=== PATIENT | female | born 2000 | race African-American/Black ===

== ENCOUNTER 2019-05-15 11:28 | Inpatient (IN) | payer OTHER ==
[~2019-05-15] VITALS: Ht 154.9 cm; Wt 46.3 kg
--- NOTE | ~2019-05-15 | HC ---
[facility] [place] [address] CONSULTATION Name: CANDIDO DE LA ROSA Room #: 202-P ADM IN M.R.#: [id number] Admission: 05/15/19 Attend Phys: Shawn Jennings MD Discharge: Date of : 99 Report #: [id number] THIS REPORT FOR: //name// CC: Shawn FernándezLanders DATE OF SERVICE: 05/15/2019 HISTORY OF PRESENT ILLNESS: This is a 19-year-old female patient, who was evaluated by me for the possibility of seizure. The patient was discussed with the Emergency Room physician and the nurses looking after them tonight. She said she had a first seizure about 7 years ago. She never saw any physician. The seizure was somewhat non-impressive jerking. Then, she started having episode where she said she freezes. She is fully conscious during those episodes. This lasted about 10 minutes. It is brought on by stress and then she becomes better. At this time, she is admitted because she said her back hurts and then her had dropped and then she started shaking. There is a question whether she was confused after that. There is no bladder or bowel incontinence. She had no tongue biting associated with this. She started a new job about 2 weeks ago. She is stressed out because of that. She is not getting enough sleep. She works as a faviola at night job. REVIEW OF SYSTEMS: She indicates she is not a diabetic or hypertensive and presently, she does not have any eye, ENT, cardiac, respiratory, GI, , musculoskeletal, constitutional, dermatological, hematological, throat, or allergic symptom associated with present symptomatology. PAST MEDICAL HISTORY: Positive for episode, which is at least 7 years' duration. FAMILY HISTORY: Unremarkable. SOCIAL HISTORY: She indicates she used to smoke marijuana. She said she stopped doing it. This was done about 1-2 weeks ago. She does not smoke cigarettes. I did not see a urine tox screen on her. PHYSICAL EXAMINATION: Her examination indicates she is alert, responsive, and able to follow simple and complex command. Her speech, concentration, fund of knowledge and memory is at her baseline. Cranial nerve examinations appear unremarkable. Neuromuscular examination is symmetrical. There is no meningeal sign no cerebellar sign. I could not look at the patient's fundus. Cardiac examination is unremarkable. No respiratory difficulty or rhonchi was noted. Blood pressure is 105/70, [facility] [address] [place] [address] CONSULTATION Name: CANDIDO DE LA ROSA Room #: 202-P [facility] IN M.R.#: [id number] Admission: 05/15/19 Attend Phys: Shawn Jennings MD Discharge: Date of : 99 Report #: [id number] respirations 16, pulse is 67, and temperature is 98.3. LABORATORY DATA: White count is normal. Her potassium is trace low at 3.4, but calcium is normal. She did have a CT scan in the Emergency Room, which does not show any abnormality. 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 However, we will exclude the possibility of any seizures in this patient. 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 I recommended an MRI of the brain and EEG. We will check a test. I did discuss with her that a negative test does not fully exclude the . I discussed her options and potential complication of the workup we doing on her. She understands that. She wants to proceed with the workup. We will do an MRI and an EEG. If they are negative, I will suggest a psychiatric consult in this patient. Dr. 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 She understands that. Dr. De Souza will review the patient's workup tomorrow and follow up with you tomorrow for further recommendation. By: [id number] Kevin Coombs MD /nt
--- NOTE | ~2019-05-15 | EEG ---
[facility] [place] [address] ELECTROENCEPHALOGRAM Name: CANDIDO DE LA RSOA Room #: 202-P ADM IN M.R.#: [id number] Admission: 05/15/19 Attend Phys: Shawn Jennings MD Discharge: Date of : 99 Report #: [id number] THIS REPORT FOR: //name// CC: Shawn Salcedo [facility] DATE OF SERVICE: 05/16/2019 This patient is being evaluated for the possibility of seizure. EEG was done by placing the electrodes by standard 10-20 system of electrode placement. Both referential and sequential montages were used for recording. Background activity in this patient's EEG is about 11 Hz and 40 microvolt. The patient went to sleep and that is associated with bilaterally symmetrical sleep spindle and vertex sharp waves. Throughout the record, no active epileptiform activity was noticed. IMPRESSION: This patient's EEG is within normal limit. Thank you very much for this referral. By: [id number] Kevin Coombs MD /nt
[2019-05-15 11:29] VITALS: BP 117/79
[2019-05-15 12:09] LABS: ABSOLUTE NEUTROPHILS 3.2 thou/uL (1.4-8.2); BASOPHILS 0.6 % (0.0-2.0); EOSINOPHILS 6.1 % (0.0-3.0); HEMOGLOBIN 12.5 gm/dL (12.0-15.0); LYMPHOCYTES 40.1 % (24.0-44.0); MCH 30.1 pg (26.0-34.0); MCHC 32.9 g/dL (28.0-37.0); MCV 91.3 fL (80.0-100.0); PLATELET COUNT 218 thou/uL (150-400); POLYS 45.2 % (36.0-66.0); RBC 4.16 mil/uL (4.20-5.00); RDW 13.1 % (10.5-14.5)
[2019-05-15 12:14] LABS: CREATININE 0.8 mg/dL (0.6-1.0); POTASSIUM 3.4 mmol/L (3.5-5.1)
[2019-05-15 12:20] LABS: ALBUMIN 4.1 g/dL (3.4-5.0); TOTAL BILIRUBIN 0.4 mg/dL (<0.1-1.0); TOTAL PROTEIN 7.8 g/dL (6.4-8.2)
[2019-05-15 12:42] LABS: URINE BILIRUBIN NEGATIVE (Negative); URINE BLOOD NEGATIVE (Negative); URINE CLARITY CLEAR; URINE COLOR YELLOW; URINE GLUCOSE-RANDOM* NEGATIVE (Negative); URINE KETONES 1+ (Negative); URINE LEUKOCYTES-REFLEX NEGATIVE (Negative); URINE NITRITE-REFLEX NEGATIVE (Negative); URINE PROTEIN (DIPSTICK) NEGATIVE (Negative); URINE UROBILINOGEN 0.2 E.U./dl (0.2-1.0)
[2019-05-15 16:11] VITALS: BP 108/60
[2019-05-15 16:33] VITALS: BP 111/64
[2019-05-15 17:10] VITALS: BP 105/70
--- NOTE | 2019-05-15 19:20 | NUR ---
NEW ADMIT FOR SEIZURE. ALERT X4, VS STABLE, DENIES PAIN, DENIES SOB, LAST BM 05/14/19. STAND BY FOR PRECAUTIONS, PT ABLE TO VOICE WHAT HAPPENED. 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 NEUROLOGY ROUNDED BEDSIDE AND DISCUSSED EEG AND MRI FOR TOMORROW. NSR ON TELE. ADMISSION ASSESMENT AND HISTORY COMPLETED. CALL LIGHT IN REACH. BOYFREIND BEDSIDE. J
[2019-05-15 19:27] LABS: TSH 1.271 uIU/mL (0.358-3.740)
[2019-05-15 20:45] VITALS: BP 108/64
[2019-05-16 00:48] VITALS: BP 106/65
[2019-05-16 04:45] VITALS: BP 98/65
--- NOTE | 2019-05-16 05:13 | NUR ---
ASSUMED PT CARE AT 1900, PT IS ALERT AND ORIENTEDX4, BOYFRIEND AT BEDSIDE,PT IS SINUS RHYTHM ON THE MONITOR, DENIES CHEST PAIN, HEADACHE, LIGHTHEADEDBESS OR SOB, ASSESSMENTS CHARTED, VS STABLE, SEIZURE PRECAUTIONS IN PLACE, EEG AND MRI IN THE AM, CONSULT CALLED FOR NEUROLOGY ORDERED, WILL CONTINUE TO MONITOR
[2019-05-16 07:45] VITALS: BP 108/67
--- NOTE | 2019-05-16 10:31 | NUR ---
Pt heading down for MRI this am. Spinning And Winding Supervisor visited with her breifly at bedside. She is a&ox4. Boyfriend supportive and at bedside. She indicates that she is uninsured and that her mother no longer carries her on her ins plan. She was working and indep prior to admission. She does not have health insurance options through her employer. Will initiate [employer] referral [place] /or michelle application. She is up with supervision and hoping to dc home later today. Will follow along for medication assistance. [facility] clinic info provided in her dc instructions.
[2019-05-16 10:36] VITALS: BP 108/67
--- NOTE | 2019-05-16 11:33 | NUR ---
FAXED FACE SHEET TO [facility] AT [facility] TO HELP WITH MEDICAID APPLICATION RECEIVED CONFIRMATION.
[2019-05-16 12:32] VITALS: BP 116/77
--- NOTE | 2019-05-16 13:00 | NUR ---
ASSUMED CARE 0700, ALERT X4, SLEPT WELL, CALM, VS STABLE, DENIES PAIN, DENIES CHEST PAIN, MRI AND EEG COMPLETED. NSR ON TELE, UP AB TALAT IN ROOM. IV AND TELE REMOVED. DC HOME WITH SELF CARE.
== END 2019-05-16 13:24 | disposition home or self-care (01) | DRG 101 ==
LOC: ER 11:28 → EROBS 14:58 → 2N 14:58
PROVIDERS: Emergency Medicine; Psychiatry & Neurology Neuromuscular Medicine; ADMIT Hospitalist
DX: R56.9 Unspecified convulsions (principal); F12.90 Cannabis use, unspecified, uncomplicated; Z28.21 Immunization not carried out because of patient refusal
CPT/HCPCS: 10081